=== PATIENT | female | born 1965 | race African-American/Black ===

== ENCOUNTER 2021-10-14 12:09 | Emergency (ER) | payer OTHER ==
[~2021-10-14] VITALS: Ht 152.4 cm; Wt 65.0 kg
[2021-10-14] MEDS ORDERED: HYDROCODONE/ACETAMINOPHEN 5/325MG TABLET PO ONE (12:45)
[2021-10-14 13:50] VITALS: BP 118/90
== END 2021-10-14 19:19 | disposition home or self-care (01) ==
LOC: ER 12:09
DX: S09.8XXA Other specified injuries of head, initial encounter (principal); M25.511 Pain in right shoulder; I10 Essential (primary) hypertension; T74.21XA Adult sexual abuse, confirmed, initial encounter; Y08.89XA Assault by other specified means, initial encounter; Y93.89 Activity, other specified; Y92.018 Other place in single-family (private) house as the place of occurrence of the external cause
CPT/HCPCS: 73030; 99284

== ENCOUNTER 2024-02-07 17:30 | Emergency (ER) | payer OTHER ==
[~2024-02-07] VITALS: Ht 165.1 cm; Wt 70.0 kg
[2024-02-07 17:48] VITALS: TEMP 98.5; O2SAT 98
[2024-02-07] MEDS: BACITRACIN ZINC OINT UDPKT TOP NR (18:47)
[2024-02-07 18:49] VITALS: BP 132/80; PULSE 80; RESP 16; O2SAT 99
== END 2024-02-07 18:51 | disposition home or self-care (01) ==
LOC: ER 17:30
DX: S00.81XA Abrasion of other part of head, initial encounter (principal); I10 Essential (primary) hypertension; X58.XXXA Exposure to other specified factors, initial encounter; Y93.89 Activity, other specified; Y92.89 Other specified places as the place of occurrence of the external cause; Y99.8 Other external cause status
CPT/HCPCS: 99283

== ENCOUNTER 2025-01-08 18:28 | Emergency (ER) | payer MEDICAID, OTHER ==
[~2025-01-08] VITALS: Ht 177.8 cm; Wt 59.0 kg
[2025-01-08 18:35] VITALS: O2SAT 98
[2025-01-08 19:46] LABS: CLARITY URINE CLEAR (CLEAR); COLOR URINE YELLOW (YELLOW); GLUCOSE URINE NEGATIVE (NEGATIVE); KETONES URINE NEGATIVE (NEGATIVE); LEUKOCYTE ESTERASE URINE NEGATIVE (NEGATIVE); NITRITE URINE NEGATIVE (NEGATIVE); OCCULT BLOOD URINE NEGATIVE (NEGATIVE); PH URINE 5.5 (4.5-8.0); PROTEIN URINE NEGATIVE (NEGATIVE); SPECIFIC GRAVITY URINE 1.023 (1.005-1.030); UROBILINOGEN URINE 1.0 E.U./dL (0.2-1.0)
[2025-01-08 20:25] VITALS: TEMP 36.8; O2SAT 100
[2025-01-08 20:35] VITALS: TEMP 98.2
[2025-01-08] MEDS: ONDANSETRON 4MG ODT PO ONE (20:35)
[2025-01-08] MEDS: ACETAMINOPHEN 500MG TABLET PO ONE (20:35)
[2025-01-08 20:39] VITALS: BP 175/99; PULSE 69; RESP 14
[2025-01-08] MEDS: KETOROLAC 15MG/ML VIAL IM ONE (20:39)
[2025-01-08 21:08] LABS: BASOPHILS % 1.1 % (0.0-2.0); EOSINOPHILS % 4.4 % (0.0-5.0); HEMATOCRIT. 44.2 % (36.0-48.0); HEMOGLOBIN. 14.0 g/dL (12.0-16.0); LYMPHOCYTES % 33.0 % (20.0-50.0); MEAN PLATELET VOLUME 8.3 fl (7.4-10.4); MONOCYTES % 7.4 % (2.0-8.0); NEUTROPHILS % 54.1 % (40.0-76.0); PLATELET 231 x1000/uL (130-400); RED BLOOD CELL COUNT 4.91 mill/uL (4.2-5.4); RED CELL DISTRIBUTION WIDTH 14.9 % (11.6-14.6)
[2025-01-08 21:22] LABS: CREATININE 0.8 mg/dL (0.6-1.0)
[2025-01-08 21:23] LABS: UREA NITROGEN BLOOD 9 mg/dL (9-23)
[2025-01-08 21:24] LABS: ASPARTATE AMINOTRANSFERASE 19 IU/L (<34)
[2025-01-08 21:25] LABS: BILIRUBIN DIRECT < 0.1 mg/dL (<=3.0); BILIRUBIN TOTAL 0.4 mg/dL (0.1-1.0); PROTEIN TOTAL 7.7 g/dL (6.0-8.3)
== END 2025-01-08 21:46 | disposition home or self-care (01) ==
LOC: ER 18:28
DX: R10.84 Generalized abdominal pain (principal); I10 Essential (primary) hypertension; Z79.899 Other long term (current) drug therapy
CPT/HCPCS: 99283; 80076; 80048; 81003; 83690; 85025; 36415; Q0162; J1885